=== PATIENT | female | born 1945 | race Caucasian/White ===

== ENCOUNTER → 2017-09-25 | Outpatient (CLI) | payer MEDICARE, BC ==
--- NOTE | 2017-09-25 18:53 | Diagnostic Imaging Report ---
PROCEDURE: CT CHEST WITHOUT CONTRAST CT scan of the chest WITHOUT intravenous contrast, using standard protocol. TECHNIQUE: The chest was scanned utilizing a multidetector helical scanner from the apex to the level of the adrenal glands. No IV contrast was administered. Coronal and sagittal multiplanar reformations were obtained. COMPARISON: Patients [facility], CT, CT CHEST WO, 05/13/2016, 12:50. Patients [facility], CT, CT CHEST WO, 12/19/2015, 11:38. Patients [facility], CT, CT CHEST WO, 11/06/2016, 16:13. INDICATIONS: LUNG NODULES FINDINGS: Lines/tubes: None. Lungs and Airways: Stable moderate to marked centrilobular emphysematous changes, predominantly in the upper lobes. Stable 4 mm nodule in the lingula (series 3, image 75). Stable 3 mm pulmonary nodule in the left lower lobe (series 3, image 89). No other pulmonary nodules. No masses or consolidation. Stable 2.5 cm anterior right lower lobe cyst or pneumatocele (series 3, image 72). Minimal bilateral dependent atelectasis. Airways are clear, without endobronchial lesions. Pleura: No effusion, or pneumothorax. Heart and mediastinum: 8 mm hypodense nodule in the left thyroid lobe (series 2 image 18). Heart size is normal. No pericardial effusion. Moderate to marked atherosclerotic calcification of the coronary arteries, aortic valve and thoracic aorta. Ascending aorta measures 4.2 x 4.3 cm. Main pulmonary artery is enlarged, measuring approximately 3.9 cm Lymph nodes: No mediastinal, hilar, or axillary adenopathy. Abdomen: Limited views of the upper abdomen show no abnormality within the visualized liver, spleen, pancreas, or left kidney. The adrenal glands are normal. Extensive atherosclerotic calcification of the aorta and branches, with stable calcification just above the renal arteries with marked luminal reduction. Stable 9 mm calcified splenic artery aneurysm. Small hiatal hernia Bones: No acute bony abnormalities. No aggressive focal sclerotic or lytic lesion. Multilevel degenerative disc changes in the thoracic and upper lumbar spine. Marked degenerative changes in the left glenohumeral joint. IMPRESSION: 1. stable 4 mm nodule in the lingula and 3 mm nodule in the left lower lobe. 2. Stable moderate to marked centrilobular emphysematous changes. 3. Stable ectasia of the ascending aorta. 4. Stable severe atherosclerosis of the abdominal aorta with calcified plaque causing marked luminal reduction Hubert Iglesias M.D. Dictated by: Hubert Iglesias M.D. on 09/25/2017 at 19:02 Electronically approved by: Hubert Iglesias M.D. on 09/25/2017 at 19:02
== END ==
LOC: CT 10:56
PROVIDERS: ATTEND Internal Medicine Critical Care Medicine
DX: R91.1 Solitary pulmonary nodule (principal)
CPT/HCPCS: 71250

== ENCOUNTER → 2018-06-02 | Outpatient (CLI) | payer MEDICARE, BC ==
--- NOTE | 2018-06-02 16:41 | Diagnostic Imaging Report ---
Ventilation/perfusion lung scan Clinical Information: 73 F with history of DVT and PE in 01/2018. Diagnosis of COPD x 3 years. Comparison: None; no recent chest radiograph; no copy of VQ scan from outside facility in 01/[address] chest 09/25/2018 Discussion: Xenon-133 gas 11.8 mCi was administered via inhalation. Dynamic images of the lungs in the posterior projection were obtained through single breath, equilibrium, and washout phases. The lung volumes appear nearly symmetric, however, tracer is relatively decreased throughout the left lung compared to the right lung. Distribution of tracer activity is mildly irregular throughout the lungs. There are no segmental ventilatory defects. Washout of tracer is diffusely delayed with air trapping in the right upper lung. Perfusion images of the lungs were obtained in multiple projections following intravenous administration of approximately 6.5 mCi of Tc-99m MAA. Again, the lung volumes appear nearly symmetric, however, distribution of tracer is relatively decreased throughout the left lung compared to the right. Distribution of tracer is irregular throughout the left lung. No perfusion defects are present. Tracer is more severely decreased in the right upper lobe although "stripe sign" is present suggesting that segmental perfusion defect is not present. No other perfusion defects are present. Tracer appears physiologic in the right lower lobe. The cardiomediastinal silhouette is enlarged. Impression: 1. Scan findings represent a VERY LOW probability for acute pulmonary embolic disease based on the PIOPED II criteria. The study establishes a baseline study for comparison if the patient should develop more pulmonary embolic disease in the future. 2. A large perfusion abnormality that is not strictly segmental in the right upper lobe that is matched with air trapping at this location on the ventilation image and represents severe parenchymal and obstructive lung disease. 3. Scan findings in the left lung are also compatible with parenchymal and/or obstructive lung disease. 4. Enlarged cardiac silhouette. Signed by: Dr. Betty Lanier M.D. on 06/02/2018 4:38 PM
== END ==
LOC: NM 13:37
PROVIDERS: ATTEND Internal Medicine Critical Care Medicine
DX: I26.99 Other pulmonary embolism without acute cor pulmonale (principal)
CPT/HCPCS: 78582; A9540; A9558

== ENCOUNTER → 2020-11-01 | Outpatient (CLI) | payer MEDICARE, BC | LOC: NM 12:44 | PROVIDERS: ATTEND Internal Medicine Critical Care Medicine | DX: R06.00 Dyspnea, unspecified (principal); I26.99 Other pulmonary embolism without acute cor pulmonale; N28.9 Disorder of kidney and ureter, unspecified | CPT/HCPCS: 71250; 78597; A9540 ==